=== PATIENT | male | born 1970 | race Caucasian/White ===

== ENCOUNTER → 2021-04-18 | Outpatient (REF) | payer BC ==
[2021-04-18 18:12] LABS: HEMOGLOBIN A1c 5.5 %
[2021-04-18 18:27] LABS: ALT/SGPT 21 U/L (12-78); BILIRUBIN,TOTAL 0.3 MG/DL (0.2-1.0); BLOOD UREA NITROGEN 20 MG/DL (7-18); CALCIUM LEVEL 8.6 MG/DL (8.5-10.1); CARBON DIOXIDE LEVEL 29 MEQ/L (21-32); CHLORIDE LEVEL 108 MEQ/L (98-107); CHOLESTEROL LEVEL 227 MG/DL (<200); CREATININE FOR GFR 1.15 MG/DL (0.70-1.30); FREE T4 0.82 NG/DL (0.76-1.46); GLOMERULAR FILTRATION RATE > 60.0 (>60); GLUCOSE, FASTING 82 MG/DL (70-100); HDL CHOLESTEROL 51 MG/DL (>40); LDL CHOLESTEROL 149 MG/DL (<100); NON-HDL-C 176 MG/DL; POTASSIUM SERUM 3.9 MEQ/L (3.5-5.1); SODIUM LEVEL 142 MEQ/L (136-145); TOTAL PROTEIN 7.1 GM/DL (6.4-8.2); TRIGLYCERIDES LEVEL 133 MG/DL (<150)
== END ==
LOC: M SFHCPLAZ 14:37
PROVIDERS: ATTEND Physician Assistant
DX: E78.2 Mixed hyperlipidemia (principal); Z13.29 Encounter for screening for other suspected endocrine disorder

== ENCOUNTER → 2022-03-29 | Outpatient (CLI) | payer BC | LOC: M PLAIMG 15:48 | PROVIDERS: ATTEND Internal Medicine Hematology | DX: M79.672 Pain in left foot (principal) ==

== ENCOUNTER → 2022-04-01 | Outpatient (CLI) | payer BC ==
[2022-04-01 09:36] LABS: HEMATOCRIT 45.5 % (42.0-52.0); MEAN CORPUSCULAR HEMOGLOBIN 30.8 pg (27.0-33.0); MEAN CORPUSCULAR VOLUME 93.4 fl (80.0-96.0); PLATELET COUNT, AUTOMATED 229 10^3/uL (150-450); RED BLOOD COUNT 4.87 10^6/uL (4.30-6.10); WHITE BLOOD COUNT 4.7 10^3/uL (4.0-10.0)
[2022-04-01 10:00] LABS: HEMOGLOBIN A1c 5.6 %
[2022-04-01 10:08] LABS: MALB URINE SIEMENS 6.9 MG/L; MAU/CREAT RATIO 4.3 MCG/MG (0.0-30.0)
[2022-04-01 10:09] LABS: ALBUMIN 3.9 GM/DL (3.2-5.2); ALT/SGPT 20 U/L (12-78); BILIRUBIN,TOTAL 0.3 MG/DL (0.2-1.0); BLOOD UREA NITROGEN 18 MG/DL (7-18); CALCIUM LEVEL 9.5 MG/DL (8.5-10.1); CARBON DIOXIDE LEVEL 29 MEQ/L (21-32); CHLORIDE LEVEL 112 MEQ/L (98-107); CHOLESTEROL LEVEL 227 MG/DL (<200); CHOLESTEROL RISK RATIO 5.536 (<5); CREATININE FOR GFR 1.05 MG/DL (0.70-1.30); GLOMERULAR FILTRATION RATE > 60.0 (>60); GLUCOSE, FASTING 96 MG/DL (70-100); HDL CHOLESTEROL 41 MG/DL (>40); LDL CHOLESTEROL 166 MG/DL (<100); NON-HDL-C 186 MG/DL; RHEUMATOID FACTOR QUANT < 10.0 IU/ML (<15.0); SODIUM LEVEL 144 MEQ/L (136-145); TOTAL PROTEIN 6.9 GM/DL (6.4-8.2); TRIGLYCERIDES LEVEL 102 MG/DL (<150)
[2022-04-03 09:19] LABS: TOTAL 25(OH) VITAMIN D 47.6 NG/ML (30.0-100.0)
[2022-04-03 09:20] LABS: VITAMIN B12 LEVEL 469 PG/ML (247-911)
[2022-04-03 16:08] LABS: ANTINUCLEAR ANTIBODIES DIRECT Negative (Negative); INSULIN LEVEL 9.4 uIU/mL (2.6-24.9)
== END ==
LOC: M LAB 08:54
PROVIDERS: ATTEND Internal Medicine Hematology
DX: E78.2 Mixed hyperlipidemia (principal)

== ENCOUNTER → 2022-04-11 | Outpatient (CLI) | payer BC | LOC: M PLAIMG 10:32 | PROVIDERS: ATTEND Internal Medicine Hematology | DX: S93.491A Sprain of other ligament of right ankle, initial encounter (principal); Y92.9 Unspecified place or not applicable; Y93.9 Activity, unspecified; Y99.9 Unspecified external cause status ==

== ENCOUNTER 2022-09-06 16:08 | Emergency (ER) | payer BC ==
[~2022-09-06] VITALS: Ht 177.8 cm; Wt 104.5 kg
[2022-09-06] MEDS ORDERED: MORPHINE 4 MG/ML 1ML VIAL/SYRINGE IV PRN (16:35)
[2022-09-06] MEDS ORDERED: ONDANSETRON 4MG 2ML VIAL IV ONE (16:35)
[2022-09-06 16:36] VITALS: BP 143/85
[2022-09-06 16:46] LABS: BASO # 0.1 10^3/uL (0.0-0.2); EOS # 0.1 10^3/uL (0.0-0.5); EOS % 1.3 % (0.0-3.0); HEMATOCRIT 39.2 % (42.0-52.0); HEMOGLOBIN 13.2 g/dl (13.5-17.5); LYMPH % 34.2 % (24.0-44.0); MEAN CORPUSCULAR HEMOGLOBIN 30.8 pg (27.0-33.0); MEAN CORPUSCULAR HGB CONC 33.7 g/dl (32.0-36.5); MEAN CORPUSCULAR VOLUME 91.6 fl (80.0-96.0); MONO # 0.4 10^3/uL (0.0-0.8); NEUTROPHILS # 3.4 10^3/uL (1.5-8.5); PLATELET COUNT, AUTOMATED 215 10^3/uL (150-450); RED BLOOD COUNT 4.28 10^6/uL (4.30-6.10)
[2022-09-06 17:30] LABS: CPK CREATINE PHOSPHOKINASE 386 U/L (39-308)
[2022-09-06 17:35] LABS: ALBUMIN 3.9 GM/DL (3.2-5.2); ALT/SGPT 34 U/L (12-78); BILIRUBIN,DIRECT 0.1 MG/DL (0.0-0.2); BILIRUBIN,TOTAL 0.4 MG/DL (0.2-1.0); BLOOD UREA NITROGEN 23 MG/DL (7-18); CARBON DIOXIDE LEVEL 29 MEQ/L (21-32); CHLORIDE LEVEL 106 MEQ/L (98-107); CREATININE FOR GFR 1.21 MG/DL (0.70-1.30); GLOMERULAR FILTRATION RATE > 60.0 (>56); GLUCOSE, FASTING 92 MG/DL (70-100); LIPASE 134 U/L (73-393); POTASSIUM SERUM 3.9 MEQ/L (3.5-5.1); SODIUM LEVEL 138 MEQ/L (136-145); TOTAL PROTEIN 6.6 GM/DL (6.4-8.2)
[2022-09-06 17:36] LABS: ERYTHROCYTE SEDIMENTATION RATE 6 mm/hr (0-20)
[2022-09-06 18:24] LABS: CPK CREATINE PHOSPHOKINASE 371 U/L (39-308)
[2022-09-06] MEDS ORDERED: KETOROLAC 30 MG/ML 1ML VIAL IV ONE (18:25)
[2022-09-06] MEDS ORDERED: ISOVUE-370 76% 100ML VIAL As Ordered ONE (18:41)
[2022-09-06] MEDS ORDERED: NAPR-837 PO (20:10)
== END 2022-09-06 20:32 | disposition home or self-care (01) ==
LOC: EDBD 16:08 → M ED 16:08
DX: R07.89 Other chest pain (principal); E78.5 Hyperlipidemia, unspecified
CPT/HCPCS: 71045; 71275; 80048; 80076; 82550; 83690; 84443; 84484; 85025; 85379; 85652; 93005; 93041; 94760; 96374; 96375; 99284; J1885; J2270; J2405; Q9967

== ENCOUNTER → 2022-10-17 | Outpatient (CLI) | payer BC ==
[~2022-10-17] MED LIST: NAPR-837 PO
== END ==
LOC: M WHC 14:03
PROVIDERS: ATTEND Physician Assistant
DX: N43.3 Hydrocele, unspecified (principal)

== ENCOUNTER → 2022-10-24 | Outpatient (CLI) | payer BC ==
[2022-10-24 15:03] LABS: BASO % 0.3 % (0.0-1.0); EOS % 0.1 % (0.0-3.0); HEMATOCRIT 45.7 % (42.0-52.0); HEMOGLOBIN 15.1 g/dl (13.5-17.5); LYMPH # 2.6 10^3/uL (1.5-5.0); LYMPH % 21.2 % (24.0-44.0); MEAN CORPUSCULAR HEMOGLOBIN 30.4 pg (27.0-33.0); MONO # 0.8 10^3/uL (0.0-0.8); MONO % 6.4 % (2.0-8.0); NEUTROPHILS # 8.7 10^3/uL (1.5-8.5); NEUTROPHILS % 71.4 % (36.0-66.0); PLATELET COUNT, AUTOMATED 274 10^3/uL (150-450); RED BLOOD COUNT 4.97 10^6/uL (4.30-6.10); WHITE BLOOD COUNT 12.2 10^3/uL (4.0-10.0)
[2022-10-24 15:12] LABS: CARBON DIOXIDE LEVEL 29 MMOL/L (20-31); CHLORIDE LEVEL 101 MMOL/L (98-107); POTASSIUM SERUM 4.1 MMOL/L (3.5-5.1); SODIUM LEVEL 140 MMOL/L (136-145)
[2022-10-24 15:18] LABS: BLOOD UREA NITROGEN 20 MG/DL (9-23); CALCIUM LEVEL 9.8 MG/DL (8.5-10.1); GLUCOSE, FASTING 100 MG/DL (60-100)
[2022-10-24 15:20] LABS: CREATININE FOR GFR 1.03 MG/DL (0.70-1.30); GLOMERULAR FILTRATION RATE > 60.0 (>56)
[2022-10-24 15:42] LABS: APPEARANCE, URINE MANUAL CLEAR (CLEAR); BILIRUBIN, URINE MANUAL NEGATIVE (NEGATIVE); BLOOD URINE MANUAL NEGATIVE (NEGATIVE); COLOR, URINE MANUAL YELLOW (YELLOW); GLUCOSE, URINE (UA) MANUAL NEGATIVE (NEGATIVE); KETONE, URINE MANUAL NEGATIVE (NEGATIVE); LEUKOCYTE ESTERASE, URINE MAN NEGATIVE (NEGATIVE); NITRITE, URINE MANUAL NEGATIVE (NEGATIVE); PROTEIN, URINE MANUAL NEGATIVE (NEGATIVE); SPECIFIC GRAVITY,URINE MANUAL 1.025 (1.002-1.035); UROBILINOGEN, URINE MANUAL NORMAL (NORMAL)
== END ==
LOC: M PLALAB 08:36
PROVIDERS: ATTEND Internal Medicine Hematology
DX: M89.9 Disorder of bone, unspecified (principal)

== ENCOUNTER → 2022-11-08 | Outpatient (CLI) | payer BC | LOC: M PLAIMG 14:06 | PROVIDERS: ATTEND Internal Medicine Hematology | DX: M89.9 Disorder of bone, unspecified (principal) ==

== ENCOUNTER → 2022-11-16 | Outpatient (CLI) | payer BC | LOC: M SOG 09:30 | PROVIDERS: ATTEND Orthopaedic Surgery | DX: M16.0 Bilateral primary osteoarthritis of hip (principal) ==

== ENCOUNTER → 2023-11-03 | Outpatient (CLI) | payer BC ==
[2023-11-03 09:27] LABS: HEMATOCRIT 45.9 % (42.0-52.0); HEMOGLOBIN 15.7 g/dl (13.5-17.5); MEAN CORPUSCULAR HEMOGLOBIN 31.3 pg (27.0-33.0); MEAN CORPUSCULAR HGB CONC 34.2 g/dl (32.0-36.5); MEAN CORPUSCULAR VOLUME 91.4 fl (80.0-96.0); PLATELET COUNT, AUTOMATED 245 10^3/uL (150-450); RED BLOOD COUNT 5.02 10^6/uL (4.30-6.10); WHITE BLOOD COUNT 4.4 10^3/uL (4.0-10.0)
[2023-11-03 09:48] LABS: C REACTIVE PROTEIN QUANTITATIV < 0.40 MG/DL (<1.0)
[2023-11-03 09:49] LABS: CPK CREATINE PHOSPHOKINASE 579 U/L (46-171); CREATININE, URINE 212.6 MG/DL; MALB URINE SIEMENS < 3.0 MG/L; MAU/CREAT RATIO 1.4 MCG/MG (0.0-30.0)
[2023-11-03 09:55] LABS: ALKALINE PHOSPHATASE 58 U/L (46-116); ALT/SGPT 32 U/L (7.0-40); AST/SGOT 36 U/L (<34); BILIRUBIN,TOTAL 0.6 MG/DL (0.3-1.2); BLOOD UREA NITROGEN 19 MG/DL (9-23); CALCIUM LEVEL 9.3 MG/DL (8.5-10.1); CARBON DIOXIDE LEVEL 32 MMOL/L (20-31); CHLORIDE LEVEL 103 MMOL/L (98-107); CHOLESTEROL LEVEL 172 MG/DL (<200); CHOLESTEROL RISK RATIO 3.98 (<5); CREATININE FOR GFR 1.09 MG/DL (0.70-1.30); GLOMERULAR FILTRATION RATE > 60.0 (>56); GLUCOSE, FASTING 107 MG/DL (60-100); HDL CHOLESTEROL 43.2 MG/DL (>40); LDL CHOLESTEROL 110.4 MG/DL (<100); NON-HDL-C 128.8 MG/DL; POTASSIUM SERUM 3.4 MMOL/L (3.5-5.1); SODIUM LEVEL 140 MMOL/L (136-145); THYROID STIMULATING HORMONE 0.937 uIU/ML (0.55-4.78); TOTAL 25(OH) VITAMIN D 59.3 NG/ML (20.0-100.0); TOTAL PROTEIN 6.8 G/DL (5.7-8.2); TRIGLYCERIDES LEVEL 92 MG/DL (<150); VITAMIN B12 LEVEL 597 PG/ML (211-911)
[2023-11-03 10:03] LABS: HEMOGLOBIN A1c 5.5 % (4.0-6.0)
== END ==
LOC: M LAB 08:33
PROVIDERS: ATTEND Internal Medicine Hematology
DX: E78.2 Mixed hyperlipidemia (principal)

== ENCOUNTER 2024-02-01 08:51 | Day surgery (SDC) | payer OTHER ==
[~2024-02-01] VITALS: Ht 177.8 cm; Wt 98.9 kg
[~2024-02-01 08:51] MED LIST changes: +CHLO125TA PO; +CLOM50TA28 PO; +FLUV20CA2 PO; +METH-1165 PO; +REPA140I2 SQ
[2024-02-01] MEDS: NS 1,000 ML IV ONE (09:04)
[2024-02-01] MEDS ORDERED: propofoL 500 MG/50 ML VIAL As Ordered ONE (09:28)
[2024-02-01] MEDS ORDERED: LIDOCAINE 2% 100MG/5ML SDV (FOR ANES.) As Ordered ONE (09:28)
[2024-02-01 09:53] VITALS: TEMP 98.1
[2024-02-01 10:13] VITALS: BP 124/65; O2SAT 98
== END 2024-02-01 10:14 | disposition home or self-care (01) ==
LOC: M OPP 08:51
PROVIDERS: ATTEND Surgery
DX: Z12.11 Encounter for screening for malignant neoplasm of colon (principal); Z86.010 Personal history of colon polyps; K63.5 Polyp of colon; Z87.891 Personal history of nicotine dependence; Z79.891 Long term (current) use of opiate analgesic; Z79.899 Other long term (current) drug therapy

== ENCOUNTER → 2024-04-06 | Outpatient (CLI) | payer OTHER ==
[2024-04-06 09:14] LABS: BASO # 0.1 10^3/uL (0.0-0.2); BASO % 1.1 % (0.0-1.0); EOS # 0.1 10^3/uL (0.0-0.5); EOS % 1.5 % (0.0-3.0); HEMATOCRIT 44.5 % (42.0-52.0); LYMPH # 1.6 10^3/uL (1.5-5.0); LYMPH % 33.6 % (24.0-44.0); MEAN CORPUSCULAR HEMOGLOBIN 30.8 pg (27.0-33.0); MEAN CORPUSCULAR HGB CONC 33.7 g/dl (32.0-36.5); MEAN CORPUSCULAR VOLUME 91.4 fl (80.0-96.0); MONO # 0.3 10^3/uL (0.0-0.8); NEUTROPHILS # 2.7 10^3/uL (1.5-8.5); NEUTROPHILS % 57.6 % (36.0-66.0); PLATELET COUNT, AUTOMATED 244 10^3/uL (150-450); RED BLOOD COUNT 4.87 10^6/uL (4.30-6.10); WHITE BLOOD COUNT 4.6 10^3/uL (4.0-10.0)
[2024-04-06 09:29] LABS: CREATININE, URINE 191.9 MG/DL; MALB URINE SIEMENS < 3.0 MG/L; MAU/CREAT RATIO 1.5 MCG/MG (0.0-30.0)
[2024-04-06 09:29] LABS: HEMOGLOBIN A1c 5.4 % (4.0-6.0)
[2024-04-06 09:30] LABS: C REACTIVE PROTEIN QUANTITATIV < 0.40 MG/DL (<1.0)
[2024-04-06 09:32] LABS: ALBUMIN 3.9 G/DL (3.2-5.2); ALKALINE PHOSPHATASE 77 U/L (46-116); ALT/SGPT 20 U/L (7.0-40); AST/SGOT 19 U/L (<34); BILIRUBIN,TOTAL 0.5 MG/DL (0.3-1.2); BLOOD UREA NITROGEN 15 MG/DL (9-23); CALCIUM LEVEL 9.6 MG/DL (8.5-10.1); CARBON DIOXIDE LEVEL 33 MMOL/L (20-31); CHLORIDE LEVEL 106 MMOL/L (98-107); CHOLESTEROL LEVEL 115 MG/DL (<200); CHOLESTEROL RISK RATIO 2.68 (<5); CREATININE FOR GFR 1.12 MG/DL (0.70-1.30); GLOMERULAR FILTRATION RATE > 60.0 (>56); GLUCOSE, FASTING 102 MG/DL (60-100); HDL CHOLESTEROL 42.9 MG/DL (>40); LDL CHOLESTEROL 44.5 MG/DL (<100); NON-HDL-C 72.1 MG/DL; POTASSIUM SERUM 3.7 MMOL/L (3.5-5.1); SODIUM LEVEL 143 MMOL/L (136-145); THYROID STIMULATING HORMONE 1.429 uIU/ML (0.55-4.78); TOTAL 25(OH) VITAMIN D 47.8 NG/ML (20.0-100.0); TOTAL PROTEIN 6.4 G/DL (5.7-8.2); TRIGLYCERIDES LEVEL 138 MG/DL (<150)
[2024-04-06 09:33] LABS: FREE T4 1.26 NG/DL (0.89-1.76); VITAMIN B12 LEVEL 391 PG/ML (211-911)
== END ==
LOC: M LAB 08:23
PROVIDERS: ATTEND Internal Medicine Hematology
DX: E78.2 Mixed hyperlipidemia (principal)

== ENCOUNTER → 2024-12-06 | Outpatient (CLI) | payer OTHER ==
[2024-12-06 09:29] LABS: HEMOGLOBIN 14.8 g/dl (13.5-17.5); MEAN CORPUSCULAR HEMOGLOBIN 30.6 pg (27.0-33.0); MEAN CORPUSCULAR HGB CONC 33.6 g/dl (32.0-36.5); MEAN CORPUSCULAR VOLUME 90.9 fl (80.0-96.0); PLATELET COUNT, AUTOMATED 233 10^3/uL (150-450); RED BLOOD COUNT 4.84 10^6/uL (4.30-6.10); WHITE BLOOD COUNT 4.7 10^3/uL (4.0-10.0)
[2024-12-06 09:36] LABS: ERYTHROCYTE SEDIMENTATION RATE 9 mm/hr (0-20)
[2024-12-06 09:53] LABS: URIC ACID 7.4 MG/DL (3.7-9.2)
[2024-12-06 09:57] LABS: ALBUMIN 4.1 G/DL (3.2-5.2); ALKALINE PHOSPHATASE 66 U/L (40-129); ALT/SGPT 27 U/L (7.0-40); AST/SGOT 33 U/L (<34); BILIRUBIN,TOTAL 0.5 MG/DL (0.3-1.2); BLOOD UREA NITROGEN 25 MG/DL (9-23); C REACTIVE PROTEIN QUANTITATIV < 0.50 MG/DL (<1.0); CALCIUM LEVEL 10.1 MG/DL (8.5-10.1); CARBON DIOXIDE LEVEL 31 MMOL/L (20-31); CHLORIDE LEVEL 106 MMOL/L (98-107); CHOLESTEROL LEVEL 207 MG/DL (<200); CHOLESTEROL RISK RATIO 4.32 (<5); CREATININE FOR GFR 0.99 MG/DL (0.70-1.30); GLOMERULAR FILTRATION RATE > 60.0 (>56); GLUCOSE, FASTING 102 MG/DL (60-100); HDL CHOLESTEROL 47.9 MG/DL (>40); LDL CHOLESTEROL 136.7 MG/DL (<100); NON-HDL-C 159.1 MG/DL; POTASSIUM SERUM 3.7 MMOL/L (3.5-5.1); SODIUM LEVEL 145 MMOL/L (136-145); TOTAL PROTEIN 7.2 G/DL (5.7-8.2); TRIGLYCERIDES LEVEL 112 MG/DL (<150)
[2024-12-06 10:01] LABS: THYROID STIMULATING HORMONE 1.449 uIU/ML (0.55-4.78); TOTAL 25(OH) VITAMIN D 42.5 NG/ML (20.0-100.0)
[2024-12-06 10:06] LABS: HEMOGLOBIN A1c 5.7 % (4.0-6.0)
[2024-12-10 01:13] LABS: CYCLIC CITRULLINATED PEPTIDE < 16 UNITS (<20)
[2024-12-10 09:38] LABS: ANA SCREEN, IFA NEGATIVE (NEGATIVE)
== END ==
LOC: M LAB 08:45
PROVIDERS: ATTEND Student in an Organized Health Care Education/Training Program
DX: E78.5 Hyperlipidemia, unspecified (principal); I10 Essential (primary) hypertension; M19.90 Unspecified osteoarthritis, unspecified site; B35.1 Tinea unguium; G47.33 Obstructive sleep apnea (adult) (pediatric)

== ENCOUNTER → 2024-12-06 | Outpatient (CLI) | payer OTHER ==
[2024-12-06 09:59] LABS: FOLLICLE STIMULATING HORMONE 6.6 mIU/ML (1.4-18.1)
[2024-12-06 10:00] LABS: ESTRADIOL 25.8 PG/ML (<39.8)
== END ==
LOC: M LAB 08:50
PROVIDERS: ATTEND Urology
DX: R68.82 Decreased libido (principal)

== ENCOUNTER → 2024-12-07 | Outpatient (CLI) | payer OTHER | LOC: M SLEEP 20:00 | PROVIDERS: ATTEND Physician Assistant | DX: G47.33 Obstructive sleep apnea (adult) (pediatric) (principal) ==